=== PATIENT | female | born 1980 | race Caucasian/White ===

== ENCOUNTER 2018-05-05 18:02 | Emergency (ER) | payer MEDICAID ==
[~2018-05-05] VITALS: Ht 167.6 cm; Wt 62.0 kg
[2018-05-05] MEDS ORDERED: ACETAMINOPHEN WITH CODEINE 300/30MG TABLET PO ONE (22:30)
[2018-05-05 22:36] VITALS: BP 162/84
== END 2018-05-06 00:15 | disposition home or self-care (01) ==
LOC: ER 18:02
DX: S43.401A Unspecified sprain of right shoulder joint, initial encounter (principal); X50.0XXA Overexertion from strenuous movement or load, initial encounter; Y93.89 Activity, other specified; Y92.89 Other specified places as the place of occurrence of the external cause; Y99.8 Other external cause status
CPT/HCPCS: 73030; 99283; A4565